=== PATIENT | male | born 2005 | race Two or more races ===

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

== ENCOUNTER 2023-02-18 02:38 | Emergency (ER) | payer OTHER, SELFPAY | END 2023-02-18 03:19 | disposition left against medical advice (07) | LOC: ERS 02:38 | DX: Z53.21 Procedure and treatment not carried out due to patient leaving prior to being seen by health care provider (principal) ==

== ENCOUNTER 2023-02-18 09:41 | Emergency (ER) | payer OTHER | END 2023-02-18 11:22 | disposition home or self-care (01) | LOC: ERS 09:41 | DX: R06.00 Dyspnea, unspecified (principal); R20.0 Anesthesia of skin; R20.2 Paresthesia of skin | CPT/HCPCS: 93005 ==

== ENCOUNTER 2024-01-30 18:43 | Emergency (ER) | payer BC, OTHER ==
[2024-01-30] MEDS ORDERED: Lidocaine 1% (PF) 30 ML VIAL ONE (20:07)
== END 2024-01-30 21:05 | disposition home or self-care (01) ==
LOC: ERS 18:43
DX: S61.011A Laceration without foreign body of right thumb without damage to nail, initial encounter (principal); W26.8XXA Contact with other sharp object(s), not elsewhere classified, initial encounter
CPT/HCPCS: 12001; 99283; J2001

== ENCOUNTER 2024-04-23 10:24 | Emergency (ER) | payer BC ==
[2024-04-23] MEDS ORDERED: HYDROcodone/Acetaminophen 10/325 mg Tablet ONE (11:43)
[2024-04-23] MEDS ORDERED: Lidocaine 1% w/Epinephrine 1:100K 20 ML VIAL ONE (13:11)
== END 2024-04-23 14:26 | disposition home or self-care (01) ==
LOC: ERS 10:24
DX: S01.81XA Laceration without foreign body of other part of head, initial encounter (principal); W22.8XXA Striking against or struck by other objects, initial encounter
CPT/HCPCS: 12011; 70450; 70486